=== PATIENT | male | born 1935 | race Asian ===

== ENCOUNTER 2018-09-27 12:21 | Emergency (ER) | payer MEDICAID, OTHER ==
[~2018-09-27] VITALS: Ht 165.1 cm; Wt 63.5 kg
[2018-09-27 12:21] VITALS: BP 238/153
[~2018-09-27 12:21] MED LIST: ALBU0.0912 IH; AMLO5TAB PO; IPRA14.7 IH; LEVO500T6 PO; MAGN400S60 PO; METH4TAB1 PO
--- NOTE | 2018-09-27 12:21 | NUR ---
PATIENT AMBULATED TO ER BED 4.
[2018-09-27] MEDS ORDERED: ALBUTEROL 0.083% 2.5 MG/3 ML NEBU INH ONE (12:25)
[2018-09-27] MEDS ORDERED: IPRATROPIUM 0.02% 0.5 MG/2.5 ML NEBU INH ONE (12:25)
--- NOTE | 2018-09-27 12:28 | NUR ---
PATIENT PRESENT TO ED WITH PT C/O SOB X30 MIN, O2 SAT 78% TO ED, HYPERTENSIVE, DENIES PAIN. PT IS AAOX4, SOB, LOABRED BREATHING, WHEEZING JUAN LUIS SOUNDS, DENIES CHEST PAIN, ST ON MONITOR; SOFT ABDOMEN WITH ACTIVE BOWEL SOUNDS, DENIES N/V/D; SKIN IS PINK/WARM/DRY; UNSTEADY GAIT; PATIENT POSITIONED FOR COMFORT; HOB ELEVATED; BEDRAILS UP X2; BED DOWN. ER MD MADE AWARE OF PT STATUS.
--- NOTE | 2018-09-27 12:30 | NUR ---
BREATHING TREATMENT AT BEDSIDE.
[2018-09-27] MEDS ORDERED: ALBUTEROL SULFATE/IPRATROPIU 3 ML SOL IH ONE (12:50)
[2018-09-27 12:55] LABS: BASOPHILS % (AUTO) 0.5 % (0.0-2.0); EOSINOPHILS # (AUTO) 0.3 K/uL (0-0.4); EOSINOPHILS % (AUTO) 3.7 % (0.0-4.0); HEMATOCRIT 44.6 % (36-52); HEMOGLOBIN 14.2 g/dL (12.0-18.0); LYMPHOCYTES # (AUTO) 3.3 K/uL (2.0-11.5); LYMPHOCYTES % (AUTO) 46.6 % (20.5-51.1); MEAN CORPUSCULAR HEMOGLOBIN 32 pg (27-31); MEAN CORPUSCULAR HGB CONC 32 g/dL (33-37); MEAN CORPUSCULAR VOLUME 98.8 fL (80-94); MONOCYTES # (AUTO) 0.5 K/uL (0.8-1.0); MONOCYTES % (AUTO) 6.4 % (1.7-9.3); NEUTROPHILS % (AUTO) 42.8 % (42.2-75.2); PLATELET COUNT (AUTO) 197 K/uL (140-450); RED BLOOD CELL COUNT(AUTO) 4.51 MIL/uL (4.20-6.10); RED CELL DISTRIBUTION WIDTH 13.9 % (11.6-13.7); WHITE BLOOD COUNT (AUTO) 7.1 K/uL (4.8-10.8)
[2018-09-27 13:03] LABS: ANION GAP 17.6 (8-16); CARBON DIOXIDE 24.8 mmol/L (21-32); CHLORIDE 103 mmol/L (98-107); CREATININE 1.7 mg/dL (0.7-1.3); GLUCOSE 212 mg/dL (74-106); POTASSIUM 3.4 mmol/L (3.5-5.1); SODIUM SERUM 142 mmol/L (136-145); UREA NITROGEN, BLOOD 18 mg/dL (7-18)
[2018-09-27 13:09] LABS: ALBUMIN 3.9 g/dL (3.4-5.0); ASPARTATE AMINOTRANSFERASE 66 U/L (15-37); TOTAL BILIRUBIN 0.7 mg/dL (0.0-1.0)
--- NOTE | 2018-09-27 13:30 | NUR ---
PT IS RESTING IN BED, NO S/S OF DISTRESS, VSS, DENIES PAIN.
[2018-09-27] MEDS ORDERED: NACL 0.9% 1,000 ML IV ONE (13:50)
[2018-09-27] MEDS ORDERED: methylPREDNISolone SS 125 MG/2 ML VIAL IVP ONE (13:50)
--- NOTE | 2018-09-27 14:30 | NUR ---
PT IS RESTING IN BED, TALKING AND LAUGHING, NO DISTRESS, DENIES PAIN, VSS.
--- NOTE | 2018-09-27 15:00 | NUR ---
ASSIST PT UP TO BED, PT IS ABLE TO WALK AROUND WITHOUT ASSIST AT THIS TIME. NO S/S OF DISTRESS, DENIES PAIN, ON RA, O2 SAT 98%.
[2018-09-27 15:38] VITALS: BP 105/47
--- NOTE | 2018-09-27 15:38 | NUR ---
Patient discharged with v/s stable. Written and verbal after care instructions given and explained. Patient alert, oriented and verbalized understanding of instructions. Ambulatory with steady gait. All questions addressed prior to discharge. ID band removed. IV SITE REMOVED. Patient advised to follow up with PMD. Rx of ALBUTEROL INHALER, PREDNISONS given. Patient educated on indication of medication including possible reaction and side effects. Opportunity to ask questions provided and answered.
== END 2018-09-27 15:38 | disposition home or self-care (01) ==
LOC: MED 12:21
DX: J98.01 Acute bronchospasm (principal); J44.9 Chronic obstructive pulmonary disease, unspecified; I10 Essential (primary) hypertension; F17.210 Nicotine dependence, cigarettes, uncomplicated; Z79.899 Other long term (current) drug therapy
CPT/HCPCS: 36415; 71045; 80053; 83880; 84484; 85025; 85610; 85730; 93005; 94640; 96374; 99284; J2930; J7030; J7613; J7620; J7644; Q0092